=== PATIENT | female | born 1960 | race Caucasian/White ===

== ENCOUNTER → 2021-06-22 | Outpatient (CLI) | payer BC ==
[~2021-06-22] MED LIST: ABILIFY10 MG PO; CALTRATE PLUS1 EACH PO; DOXYCYCLINE 10100 MG PO; HYDROCODON-ACE1 EAC7 PO; LAMICTAL 25 MG25 M1 PO; RITALIN10 MG PO; ZOCOR40 MG PO
== END ==
LOC: BC 10:29
PROVIDERS: ATTEND Nurse Practitioner
DX: N63.11 Unspecified lump in the right breast, upper outer quadrant (principal)

== ENCOUNTER → 2021-06-26 | Outpatient (CLI) | payer BC | LOC: ULTRA 13:21 | PROVIDERS: ATTEND Family Medicine | DX: N63.10 Unspecified lump in the right breast, unspecified quadrant (principal) ==

== ENCOUNTER → 2021-07-05 | Outpatient (CLI) | payer BC ==
--- NOTE | 2021-07-09 12:06 | PATH ---
[facility] [address] [place] [address] PATHOLOGY RPT PROCEDURE Name: ZAIDA LAMBERT Room #: REG [facility].#: [id number] Admission: 07/05/21 Date of : 58 Discharge: Report #: [id number] Path Case #: [id number] [facility] Accession Number: [id number] . 01 Material submitted: . breast - RIGHT BREAST MASS. Modifiers: right . 01 Clinical history: . RIGHT BREAST 1000 5CMFN . 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 SEE COMMENT. (DEISY:marianna; 07/06/2021) . . CASE SUMMARY: (INVASIVE CARCINOMA OF THE BREAST: Biopsy) . SPECIMEN Procedure ___ Other: Image guided core biopsies . Specimen Laterality ___ Right . TUMOR +Tumor Site ___ Clock position ___ 10 o'clock ___ Specify distance from nipple: 5 cm . Histologic Type ___ Invasive carcinoma of no special type (ductal) . Histologic Grade ([place] Histologic Score) Glandular (Acinar) / Tubular Differentiation ___ Score 3 (less than 10% of tumor area forming glandular / tubular structures) . Nuclear Pleomorphism ___ Score 3 (Vesicular nuclei, often with prominent nucleoli, exhibiting marked variation in size and shape, occasionally with very large and bizarre forms) . Mitotic Rate ___ Score 3 . [facility] [address] [address] PATHOLOGY RPT PROCEDURE Name: ZAIDA LAMBERT Room #: REG Dariel Pearl#: [id number] Admission: 07/05/21 Date of : 58 Discharge: Report #: [id number] Path Case #: [id number] Overall Grade ___ Grade 3 (scores of 8 or 9) . +Tumor Size ___ Greatest dimension of largest invasive focus greater than 1 mm: 10 mm . Ductal Carcinoma In Situ (DCIS) ___ Not identified . +Lymphovascular Invasion ___ Not identified . +Microcalcifications ___ Not identified . SPECIAL STUDIES +Breast Biomarker Studies pending on block A1 MBR 07/06/2021 1153 Local . 02 Comment: Approximately 95% of the submitted tissues is involved by invasive neoplasm. Breast tumor profile studies are pending on A1 and will the subject of an addendum report. Reviewed with Dr. Beba Hoyt on 07/06/2021 who agrees with the diagnosis. [facility] navigator not available for notifications on afternoon of 07/06/2021. (DEISY:marianna; 07/06/2021) . 02 Electronically signed: . Suleman Mcgregor MD, Pathologist NPI- [id number] . 01 Gross description: . The specimen is received in formalin, labeled "Zaida Lambert R breast 10:00 5 cm FN". Received are 3 needle cores of fibrofatty tissue measuring 1.6 x 0.6 x 0.2 cm in aggregate dimensions. The specimen is submitted entirely in cassettes A1-A3. The specimen is collected at 1030 and placed into formalin at 1035 on 07/05/2021. The specimen is removed from formalin at 2240 on 07/05/2021. The total formalin fixation time is 11 hours and 55 minutes. ([facility]; 07/05/2021) NRI/NRI 07/06/2021 1139 Local . 02 Pathologist provided ICD-10: C50.911 . 02 CPT . [id number] [address] [address] PATHOLOGY RPT PROCEDURE Name: ZAIDA LAMBERT Room #: REG Dariel Pearl#: [id number] Admission: 07/05/21 Date of : 58 Discharge: Report #: [id number] Path Case #: [id number] Specimen Comment: A courtesy copy of this report has been sent to [phone], [phone] Specimen Comment: [phone], Specimen Comment: Report sent to / DR CARLIN Specimen Comment: A duplicate report has been generated due to demographic updates. Performed at: [address] [id number] [facility] [address], [place] [id number] MD Azam Brice MD Phone: [phone] Performed at: 02 [facility] [address], [place], [place] [id number] MD Suleman Mcgregor MD Phone: [phone]
== END | disposition home or self-care (01) ==
LOC: ULTRA 08:53
PROVIDERS: ATTEND Nurse Practitioner
DX: C50.911 Malignant neoplasm of unspecified site of right female breast (principal); Z79.899 Other long term (current) drug therapy